=== PATIENT | male | born 1980 | race Caucasian/White ===

== ENCOUNTER 2017-08-23 14:51 | Emergency (ER) | payer SELFPAY ==
[~2017-08-23] VITALS: Ht 172.7 cm; Wt 60.0 kg
[~2017-08-23 14:51] MED LIST: SULF1TAB47 PO; TRAM50 PO; Z.0.NO CURRENT MEDS
[2017-08-23 14:55] VITALS: BP 142/71; PULSE 101; RESP 16; TEMP 98.1; O2SAT 98
[2017-08-23] MEDS ORDERED: SULFAMETHOXAZOLE-TRIMETHOPRIM DS 800-160 MG TAB PO ONE (16:45)
[2017-08-23] MEDS ORDERED: CEPHALEXIN MONOHYDRATE 500 MG CAP PO ONE (16:45)
[2017-08-23] MEDS ORDERED: TETANUS/DIPHTHERIA TOXOID ADULT 0.5 ML VIAL IM ONE (16:45)
[2017-08-23] MEDS ORDERED: LIDOCAINE 1%/EPINEPHrine 1:100,000 SOLN 20 ML VIAL INFIL ONE (16:45)
[2017-08-23] MEDS ORDERED: LIDOCAINE 1%/EPINEPHrine 1:100,000 SOLN 30 ML VIAL ONE (16:50)
[2017-08-23] MEDS ORDERED: CEPH-460 PO (17:19)
[2017-08-23] MEDS ORDERED: BACT800T5 PO (17:19)
[2017-08-23] MEDS ORDERED: DICL75TA PO (17:19)
--- NOTE | 2017-08-23 17:23 | PD ---
HPI Chief Complaint: Skin Problem Time Seen by Provider: 16:19 Travel History International Travel<30 days: No Contact w/Intl Traveler<30days: No Traveled to known affect area: No History of Present Illness HPI 36-year-old male that presents to the ED for evaluation of skin abscess to the left arm. Patient reports that he's had this for about 2 days. Per patient he is an IV drug abuser and used in that arm about 2 days ago. He was concerned today because he got more swelling and he could barely use his arm without severe pain. Used epson saltz with minimal relief. Per patient pain is 8 out of 10. Denies any history of this in the past. No urinary or bowel movement issues. No chest pain or shortness of breath. No fevers chills or sweats. Pain is only to the arm. No drainage. No history of MRSA. Uptodate with tetanus PFSH Past Medical History Medical History: Denies Significant Hx Diminished Hearing: No Tetanus Vaccination: < 5 Years Influenza Vaccination: No Past Surgical History Surgical History: No Previous Surgery Social History Alcohol Use: No Tobacco Use: Yes Substance Use: No Allergies-Medications (Allergen,Severity, Reaction): Coded Allergies: No Known Allergies (Unverified , 10/20/12) Reported Meds & Prescriptions Reported Meds & Active Scripts Active Diclofenac Sodium DR (Diclofenac Sodium) 75 Mg Tabdr 75 Mg PO BID PRN Keflex (Cephalexin) 500 Mg Cap 500 Mg PO Q8H 10 Days Bactrim DS (Sulfamethoxazole-Trimethoprim) 800-160 Mg Tab 1 Tab PO BID 10 Days Review of Systems Except as stated in HPI: all other systems reviewed are Neg Physical Exam Narrative GENERAL: SKIN: Warm and dry. Patient has a skin abscess about 4 cm in diameter on the left antecubital aspect of the arm. Tender to touch. Warm to the touch. Full range of motion of the arm. Good capillary refill. 2+ pulses bilaterally. HEAD: Atraumatic. Normocephalic. EYES: Pupils equal and round. No scleral icterus. No injection or drainage. ENT: No nasal bleeding or discharge. Mucous membranes pink and moist. NECK: Trachea midline. No JVD. CARDIOVASCULAR: Regular rate and rhythm. RESPIRATORY: No accessory muscle use. Clear to auscultation. Breath sounds equal bilaterally. GASTROINTESTINAL: Abdomen soft, non-tender, nondistended. Hepatic and splenic margins not palpable. MUSCULOSKELETAL: Extremities without clubbing, cyanosis, or edema. No obvious deformities. NEUROLOGICAL: Awake and alert. No obvious cranial nerve deficits. Motor grossly within normal limits. Five out of 5 muscle strength in the arms and legs. Normal speech. PSYCHIATRIC: Appropriate mood and affect; insight and judgment normal. Data Data Last Documented VS Vital Signs Date Time Temp Pulse Resp B/P (MAP) Pulse Ox O2 Delivery O2 Flow Rate FiO2 08/23/17 14:55 98.1 101 16 142/71 (94) 98 Orders Orders Wound Culture And Gram Stain (08/23/17 16:39) Wound Care (08/23/17 16:39) Tetanus/Diphtheria Tox Adult (Tetanus/Di (08/23/17 16:45) Lidocai-Epi 1%-1:100,000 Inj (Xylocaine- (08/23/17 16:45) Sulfamet-Trimeth Ds 800-160 Mg (Bactrim (08/23/17 16:45) Cephalexin (Keflex) (08/23/17 16:45) Lidocai-Epi 1%-1:100,000 Inj (Xylocaine- (08/23/17 16:50) Ed Discharge Order (08/23/17 17:18) MDM Medical Decision Making Medical Screen Exam Complete: Yes Emergency Medical Condition: Yes Medical Record Reviewed: Yes Differential Diagnosis Abscesses versus cellulitis versus normal exam Narrative Course 36-year-old male that presents to the ED for evaluation of abscess to the left arm. Patient was properly examined and was found to have signs and symptoms consistent with abscess. After explaining proceeded to the patient and she agreed to it abscess was incised and drained as stated in procedure note. Patient was given prescriptions for Bactrim and Keflex. He was given the first dose of that here. Told to do wound care. Recheck in 48 hours if no improvement. The packing removed in 48 hours. See ED worsening symptoms. Procedures Procedure Narrative After the risks and benefits were discussed the following procedure was performed: INCISION AND DRAINAGE OF ABSCESS: The area was prepped and was sterilely draped. A subcutaneous wheal of 1 % Xylocaine with a total number 5 mL was used to anesthetize the area. The area was properly anesthetized. A number 11 scalpel was used to make a 1 -cm incision across the area of the abscess. Cultures were obtained. The abscess was drained an irrigated with normal saline. Quarter inch iodoform packing was placed in the wound. Sterile dressing applied. Patient advised to have packing removed in two days. Diagnosis Primary Impression: Abscess Patient Instructions: General Instructions Additional Instructions: Take medications as prescribed. Follow-up with PCP. See ED for any worsening symptoms. Apply ice or heat as needed for pain Ice to the area. Change dressings once a day. Get packing removed in 2 days Med/Other Pt SpecificInfo: Prescription(s) given, Wound Care Scripts Diclofenac Sodium DR (Diclofenac Sodium DR) 75 Mg Tabdr 75 MG PO BID Y for PAIN SCALE 1 TO 10, #20 TAB 0 Refills Prov: Abdelrahman Crowell MD 08/23/17 Cephalexin (Keflex) 500 Mg Cap 500 MG PO Q8H for Infection for 10 Days, #30 CAP 0 Refills Prov: Abdelrahman Crowell MD 08/23/17 Sulfamethoxazole-Trimethoprim (Bactrim DS) 800-160 Mg Tab 1 TAB PO BID for Infection for 10 Days, #20 TAB 0 Refills Prov: Abdelrahman Crowell MD 08/23/17 Disposition: 01 DISCHARGE HOME Condition: Stable Jasper Greene Aug 23, 2017 17:23
[2017-08-23 17:47] VITALS: BP 132/83
== END 2017-08-23 17:54 | disposition home or self-care (01) ==
LOC: NEPE 14:51
DX: L02.414 Cutaneous abscess of left upper limb (principal); Z72.0 Tobacco use
CPT/HCPCS: 10061; 86403; 87070; 87205

== ENCOUNTER 2018-06-13 18:43 | Observation (INO) ==
[2018-06-13] MEDS ORDERED: Sod Chloride 0.9% Inj 1,000 ML IV.SIG SCH (19:30)
--- NOTE | 2018-06-13 19:58 | CT ---
EXAM DATE: 06/13/2018 7:54 PM EST AGE/SEX: 37 years / Male INDICATIONS: Trauma, multiple lacerations to face. CLINICAL DATA: This is the patient's initial encounter. Patient reports that signs and symptoms have been present for 1 day and indicates a pain score of 7/10. MEDICAL/SURGICAL HISTORY: None. None. RADIATION DOSE: 45.79 CTDI (mGy) COMPARISON: No prior exams available for comparison. TECHNIQUE: CT of the head without contrast. Using automated exposure control and adjustment of the mA and/or kV according to patient size, radiation dose was kept as low as reasonably achievable to ob tain optimal diagnostic quality images. DICOM format image data is available electronically for revi ew and comparison. FINDINGS: Cerebrum: The ventricles are normal for age. No evidence of midline shift, mass lesion, hemorrhage or acute infarction. No extraaxial fluid collections are seen. Posterior Fossa: The cerebellum and brainstem are intact. The 4th ventricle is midline. The cerebe llopontine angle is unremarkable. Extracranial: The visualized portion of the orbits is intact. Nasal bone fractures are seen. The patient is to have a CT examination of the facial bones to follow. Skull: The calvaria is intact. No evidence of skull fracture. CONCLUSION: 1. No acute intracranial abnormality is seen. . Electronically signed by: Dylan Padilla MD 06/13/2018 7:57 PM EST
--- NOTE | 2018-06-13 20:02 | CT ---
EXAM DATE: 06/13/2018 7:56 PM EST AGE/SEX: 37 years / Male INDICATIONS: Trauma, multiple lacerations to face. CLINICAL DATA: This is the patient's initial encounter. Patient reports that signs and symptoms have been present for 1 day and indicates a pain score of 8/10. MEDICAL/SURGICAL HISTORY: None. None. RADIATION DOSE: 17.13 CTDI (mGy) COMPARISON: No prior exams available for comparison. TECHNIQUE: Contiguous images in the axial and coronal planes were obtained using helical multirow de tector technique. Using automated exposure control and adjustment of the mA and/or kV according to p atient size, radiation dose was kept as low as reasonably achievable to obtain optimal diagnostic duncan lity images. DICOM format image data is available electronically for review and comparison. FINDINGS: Orbits: The orbital and infraorbital osseous structures are intact. The retroconal structures have a normal configuration. No radiopaque foreign bodies are seen. Nasal Bone: Nasal bone fractures are seen being worse on the right. There is minimal lateral displac ement of the anterior right lateral nasal bone fragment. Zygomatic Arches: Symmetric without evidence of fracture. Sinuses: There is mild mucosal thickening at the medial aspects of the maxillary sinuses being worse on the right. There is minimal right anterior ethmoid sinus mucosal disease. There is minimal mucosa l thickening at the anterior medial aspects of the sphenoid sinuses being worse on the right. Nasal Cavity: There appears to be fracturing of the nasal septum. Soft Tissues: No radiopaque foreign bodies seen. No soft-tissue swelling is seen. Intracranial: No intracranial air seen. Cribriform Plate: Grossly intact. CONCLUSION: 1. Nasal bone fractures. 2. Fracture of the bony nasal septum. 3. Mild sinus disease. Electronically signed by: Dylan Padilla MD 06/13/2018 8:00 PM EST
[2018-06-13 20:30] LABS: Baso # (Auto) 0.1 th/mm3 (0.0-0.2); Baso % (Auto) 0.5 % (0.0-2.0); Eos % (Auto) 0.1 % (0.0-4.0); Hematocrit 40.5 % (39.0-51.0); Hemoglobin 13.6 gm/dL (13.0-17.0); Lymph # (Auto) 0.8 th/mm3 (1.0-4.8); Lymph % (Auto) 6.2 % (9.0-44.0); Mean Corpuscular HGB Conc 33.5 % (32.0-36.0); Mean Corpuscular Hemoglobin 29.2 pg (27.0-34.0); Mean Corpuscular Volume 87.3 fL (80.0-100.0); Mean Platelet Volume 7.9 fL (7.0-11.0); Mono # (Auto) 0.9 th/mm3 (0.0-0.9); Mono % (Auto) 6.9 % (0.0-8.0); Neut # (Auto) 11.1 th/mm3 (1.8-7.7); Neut % (Auto) 86.3 % (16.0-70.0); Platelet Count 238 th/mm3 (150-450); Red Blood Count 4.64 mil/mm3 (4.50-5.90); Red Cell Distribution Width 15.3 % (11.6-17.2); White Blood Count 12.8 th/mm3 (4.0-11.0)
[2018-06-13 20:46] LABS: Albumin 3.3 g/dL (3.4-5.0); Anion Gap 6 meq/L (5-15); Aspartate Aminotransferase 62 U/L (15-37); Blood Urea Nitrogen 19 mg/dL (7-18); Calcium 8.7 mg/dL (8.5-10.1); Carbon Dioxide 24.7 meq/L (21.0-32.0); Chloride 102 meq/L (98-107); Glomerular Filtration Rate 71 mL/min (>89); Glucose,Random 138 mg/dL (74-106); Potassium 5.4 meq/L (3.5-5.1); Sodium 133 meq/L (136-145)
[2018-06-13 20:47] LABS: Alanine Aminotransferase 69 U/L (12-78)
[2018-06-13 20:50] LABS: Alkaline Phosphatase 89 U/L (45-117); Total Protein 7.2 g/dL (6.4-8.2)
[2018-06-13] MEDS ORDERED: Acetaminophen 325 MG Tablet PO PRN (22:11)
[2018-06-13] MEDS ORDERED: Bisacodyl 10 MG Supp RECTAL PRN (22:11)
--- NOTE | 2018-06-13 22:12 | ED ---
HPI General Chief Complaint: Altered Mental Status Stated Complaint: ams/evac Time Seen by Provider: 06/13/18 19:15 Source: family and EMS Mode of arrival: EMS Limitations: altered mental status History of Present Illness HPI narrative: 37-year-old male was found found on his grandmother's porch by his sister with altered mental status. As per the sister he has history of IV heroin abuse. However he acted very confused today which is unusual. She also noticed that there were facial injuries and patient did not recall how this happened. Patient was last seen normal by his mother yesterday morning. He was supposed to go to work at his [employer] but did not show up at 4 PM which is unusual. This led to his sister looking for him and eventually finding him on the porch. Patient was brought in by EMS. He did not receive Narcan. Upon arrival he had a GCS of 14. Patient did not remember the date, month or the president of the country. He did not remember how his injury happened. The last thing he remembers was going to his [employer] yesterday and leaving after work in the evening/night. Vital signs were relatively stable. As per the family patient is otherwise healthy. Related Data Home Medications Medication Instructions Recorded Confirmed No Known Home Medications 06/13/18 06/13/18 Allergies Allergy/AdvReac Type Severity Reaction Status Date / Time No Known Allergies Allergy Uncoded 10/20/12 13:23 Review of Systems ROS: all other systems reviewed are negative [facility] Medical History Medical History Patient denies medical problems (Acute) Surgical History Surgical History No history of previous surgery (Acute) Social History Social History Substance History: Past History Second Hand Smoke Exposure: Yes Smoking Status: Current every day smoker Tobacco Type: Cigarettes How Often Do You Have a Drink Containing Alcohol: Never Recent Travel in [facility] within the Last 8 Weeks: No Recent Out of Country Travel within the Last 8 Weeks: No Immunization History Tetanus Immunization: <5 Years Exam Narrative Exam Narrative: GENERAL: Awake, confused, moderate to SKIN: Focused skin assessment warm/dry. HEAD: Atraumatic. Normocephalic. EYES: Pupils equal and round. No scleral icterus. No injection or drainage. ENT: No nasal bleeding or discharge. Mucous membranes pink and moist. Nasal swelling and contusion, contusion of the cheek bones and periorbital ecchymosis bilateral. Poor dentition NECK: Trachea midline. No JVD. CARDIOVASCULAR: Regular rate and rhythm. No murmur appreciated. RESPIRATORY: No accessory muscle use. Clear to auscultation. Breath sounds equal bilaterally. GASTROINTESTINAL: Abdomen soft, non-tender, nondistended. Hepatic and splenic margins not palpable. MUSCULOSKELETAL: No obvious deformities. No clubbing. No cyanosis. No edema. NEUROLOGICAL: GCS of 14. No obvious cranial nerve deficits. Motor grossly within normal limits. Normal speech. PSYCHIATRIC: Appropriate mood and affect; insight and judgment normal. Course Initial Documented Vital Signs Temperature 97.6 F 06/13/18 18:45 Pulse Rate 85 06/13/18 18:45 Respiratory Rate 17 06/13/18 18:45 Blood Pressure 96/64 L 06/13/18 18:45 Pulse Oximetry 92 L 06/13/18 18:45 Last Documented Vital Signs Temperature 99 F 06/14/18 15:20 Pulse Rate 76 06/14/18 15:20 Respiratory Rate 20 06/14/18 15:20 Blood Pressure 121/84 06/14/18 15:20 Pulse Oximetry 96 06/14/18 15:20 Medical Decision Making MDM Narrative Medical decision making narrative: 10:[address] scan of the head was negative. Facial CT showed nasal bone fractures. Patient had mild hyponatremia. He was given 1 L of IV fluid bolus. Upon reassessment recently patient is still a GCS of 14 with no improvement of his memory. The family has been very concerned and would prefer the patient to be admitted and observed. I discussed the case with the hospitalist was accepted the admission. Medical Screen Exam Complete: Yes Emergency Medical Condition: Yes Lab Data Result diagrams: 06/14/18 06:50 06/14/18 06:50 Lab Results 06/13/18 06/13/18 06/13/18 Range/Units 19:33 19:37 19:37 WBC 12.8 H (4.0-11.0) th/mm3 RBC 4.64 (4.50-5.90) mil/mm3 Hgb 13.6 (13.0-17.0) gm/dL Hct 40.5 (39.0-51.0) % MCV 87.3 (80.0-100.0) fL MCH 29.2 (27.0-34.0) pg MCHC 33.5 (32.0-36.0) % RDW 15.3 (11.6-17.2) % Plt Count 238 (150-450) th/mm3 MPV 7.9 (7.0-11.0) fL Neut % (Auto) 86.3 H (16.0-70.0) % Lymph % (Auto) 6.2 L (9.0-44.0) % [place] % (Auto) 6.9 (0.0-8.0) % Eos % (Auto) 0.1 (0.0-4.0) % Baso % (Auto) 0.5 (0.0-2.0) % Neut # (Auto) 11.1 H (1.8-7.7) th/mm3 Lymph # (Auto) 0.8 L (1.0-4.8) th/mm3 [place] # (Auto) 0.9 (0.0-0.9) th/mm3 Eos # (Auto) 0.0 (0.0-0.4) th/mm3 Baso # (Auto) 0.1 (0.0-0.2) th/mm3 WBC Differential . Differential Comment Auto diff final Sodium 133 L (136-145) meq/L Potassium 5.4 H (3.5-5.1) meq/L Chloride 102 (98-107) meq/L Carbon Dioxide 24.7 (21.0-32.0) meq/L Anion Gap 6 (5-15) meq/L BUN 19 H (7-18) mg/dL Creatinine 1.17 (0.60-1.30) mg/dL Estimated GFR 71 L (>89) mL/min POC Glucose 153 H (68-110) mg/dl Random Glucose 138 H (74-106) mg/dL Calcium 8.7 (8.5-10.1) mg/dL Total Bilirubin 0.3 (0.2-1.0) mg/dL AST 62 H (15-37) U/L ALT 69 (12-78) U/L Alkaline Phosphatase 89 (45-117) U/L Total Protein 7.2 (6.4-8.2) g/dL Albumin 3.3 L (3.4-5.0) g/dL Urine Color (Yellw/Straw) Urine Clarity (Clear) Urine pH (5.0-8.5) Ur Specific [place] (1.002-1.035) Urine Protein (Neg-Trace) mg/dL Urine Glucose (UA) (Negative) mg/dL Urine Ketones (Negative) mg/dL Urine Occult Blood (Negative) Urine Nitrate (Negative) Urine Bilirubin (Negative) Urine Urobilinogen (Less than 2) mg/dL Ur Leukocyte Esterase (Negative) Urine RBC (0-3) /hpf Urine WBC (0-5) /hpf Ur Squamous Epith Cells (0-5) /hpf Ur Renal Epithelial Cell (None) /hpf Urine Bacteria (None) /hpf Urine Mucus (Occasional) /lpf Micro UA Comment Ur Microscopic Review Urine Culture Comments Urine Opiates Screen (Neg) Ur Barbiturates Screen (Neg) Ur Amphetamines Screen (Neg) U Benzodiazepines Scrn (Neg) Urine Cocaine Screen (Neg) U Cannabinoids Screen (Neg) 06/13/18 06/13/18 06/14/18 Range/Units 22:08 22:08 06:50 WBC 6.9 (4.0-11.0) th/mm3 RBC 4.08 L (4.50-5.90) mil/mm3 Hgb 12.1 L (13.0-17.0) gm/dL Hct 35.7 L (39.0-51.0) % MCV 87.5 (80.0-100.0) fL MCH 29.5 (27.0-34.0) pg MCHC 33.8 (32.0-36.0) % RDW 15.9 (11.6-17.2) % Plt Count 195 (150-450) th/mm3 MPV 7.7 (7.0-11.0) fL Neut % (Auto) 62.0 (16.0-70.0) % Lymph % (Auto) 23.2 (9.0-44.0) % [place] % (Auto) 12.9 H (0.0-8.0) % Eos % (Auto) 1.3 (0.0-4.0) % Baso % (Auto) 0.6 (0.0-2.0) % Neut # (Auto) 4.3 (1.8-7.7) th/mm3 Lymph # (Auto) 1.6 (1.0-4.8) th/mm3 [place] # (Auto) 0.9 (0.0-0.9) th/mm3 Eos # (Auto) 0.1 (0.0-0.4) th/mm3 Baso # (Auto) 0.0 (0.0-0.2) th/mm3 WBC Differential . Differential Comment Auto diff final Sodium (136-145) meq/L Potassium (3.5-5.1) meq/L Chloride (98-107) meq/L Carbon Dioxide (21.0-32.0) meq/L Anion Gap (5-15) meq/L BUN (7-18) mg/dL Creatinine (0.60-1.30) mg/dL Estimated GFR (>89) mL/min POC Glucose (68-110) mg/dl Random Glucose (74-106) mg/dL Calcium (8.5-10.1) mg/dL Total Bilirubin (0.2-1.0) mg/dL AST (15-37) U/L ALT (12-78) U/L Alkaline Phosphatase (45-117) U/L Total Protein (6.4-8.2) g/dL Albumin (3.4-5.0) g/dL Urine Color Yellow (Yellw/Straw) Urine Clarity Hazy H (Clear) Urine pH 5.0 (5.0-8.5) Ur Specific [place] 1.021 (1.002-1.035) Urine Protein Negative (Neg-Trace) mg/dL Urine Glucose (UA) Negative (Negative) mg/dL Urine Ketones Negative (Negative) mg/dL Urine Occult Blood Negative (Negative) Urine Nitrate Negative (Negative) Urine Bilirubin Negative (Negative) Urine Urobilinogen Less than 2 (Less than 2) mg/dL Ur Leukocyte Esterase Negative (Negative) Urine RBC Less than 1 (0-3) /hpf Urine WBC 2 (0-5) /hpf Ur Squamous Epith Cells <1 (0-5) /hpf Ur Renal Epithelial Cell <1 (None) /hpf Urine Bacteria Rare H (None) /hpf Urine Mucus Moderate H (Occasional) /lpf Micro UA Comment Culture not ind Ur Microscopic Review Not Reportable Urine Culture Comments Culture not ind Urine Opiates Screen Pos H (Neg) Ur Barbiturates Screen Neg (Neg) Ur Amphetamines Screen Pos H (Neg) U Benzodiazepines Scrn Neg (Neg) Urine Cocaine Screen Neg (Neg) U Cannabinoids Screen Pos H (Neg) 06/14/18 Range/Units 06:50 WBC (4.0-11.0) th/mm3 RBC (4.50-5.90) mil/mm3 Hgb (13.0-17.0) gm/dL Hct (39.0-51.0) % MCV (80.0-100.0) fL MCH (27.0-34.0) pg MCHC (32.0-36.0) % RDW (11.6-17.2) % Plt Count (150-450) th/mm3 MPV (7.0-11.0) fL Neut % (Auto) (16.0-70.0) % Lymph % (Auto) (9.0-44.0) % [place] % (Auto) (0.0-8.0) % Eos % (Auto) (0.0-4.0) % Baso % (Auto) (0.0-2.0) % Neut # (Auto) (1.8-7.7) th/mm3 Lymph # (Auto) (1.0-4.8) th/mm3 [place] # (Auto) (0.0-0.9) th/mm3 Eos # (Auto) (0.0-0.4) th/mm3 Baso # (Auto) (0.0-0.2) th/mm3 WBC Differential Differential Comment Sodium 139 (136-145) meq/L Potassium 3.8 D (3.5-5.1) meq/L Chloride 106 (98-107) meq/L Carbon Dioxide 25.9 (21.0-32.0) meq/L Anion Gap 7 (5-15) meq/L BUN 13 (7-18) mg/dL Creatinine 0.67 (0.60-1.30) mg/dL Estimated GFR Greater than 89 (>89) mL/min POC Glucose (68-110) mg/dl Random Glucose 88 (74-106) mg/dL Calcium 7.6 L D (8.5-10.1) mg/dL Total Bilirubin 0.4 (0.2-1.0) mg/dL AST 40 H (15-37) U/L ALT 55 (12-78) U/L Alkaline Phosphatase 74 (45-117) U/L Total Protein 6.0 L D (6.4-8.2) g/dL Albumin 2.8 L (3.4-5.0) g/dL Urine Color (Yellw/Straw) Urine Clarity (Clear) Urine pH (5.0-8.5) Ur Specific [place] (1.002-1.035) Urine Protein (Neg-Trace) mg/dL Urine Glucose (UA) (Negative) mg/dL Urine Ketones (Negative) mg/dL Urine Occult Blood (Negative) Urine Nitrate (Negative) Urine Bilirubin (Negative) Urine Urobilinogen (Less than 2) mg/dL Ur Leukocyte Esterase (Negative) Urine RBC (0-3) /hpf Urine WBC (0-5) /hpf Ur Squamous Epith Cells (0-5) /hpf Ur Renal Epithelial Cell (None) /hpf Urine Bacteria (None) /hpf Urine Mucus (Occasional) /lpf Micro UA Comment Ur Microscopic Review Urine Culture Comments Urine Opiates Screen (Neg) Ur Barbiturates Screen (Neg) Ur Amphetamines Screen (Neg) U Benzodiazepines Scrn (Neg) Urine Cocaine Screen (Neg) U Cannabinoids Screen (Neg) Imaging Data Radiologist's impression: Face CT 06/13/18 19:27 CONCLUSION: 1. Nasal bone fractures. 2. Fracture of the bony nasal septum. 3. Mild sinus disease. Head CT 06/13/18 19:27 CONCLUSION: 1. No acute intracranial abnormality is seen. . Head CT 06/14/18 06:00 CONCLUSION: 1. Stable evaluation without evidence of acute intercranial process. 2. Fractured nasal bone. . ECG Data Attestation: I personally reviewed and interpreted this ECG as follows: Interpretation: Twelve-lead EKG was reviewed by me. Normal sinus rhythm, normal axis, nonspecific ST-T wave changes. Heart rate of 71 bpm Discharge Plan Discharge Disposition Patient Disposition: ED Admit(ED Internal Use Only) Discharge Condition Condition: Stable Discharge Order Discharge Orders: Discharge Order (Routine); Ordered 06/14/18 Ordered By: Alyx Chapa ED Use Only Admit Order (Routine); Ordered 06/13/18 Ordered By: Jammie Montes Discharge Details Anticipated Discharge Date: 06/14/18 Physicians Team ED Provider: Jammie Montes Primary Care Provider: Primary Care Mary Castillo Attending Provider: Mark Bradshaw Status ED Status: Left Department Discharge Information Discharge Date/Time: 06/13/18 23:59
--- NOTE | 2018-06-13 22:13 | P.HPIM ---
History of Present Illness Primary Care Physician: No Primary Care Physician History of Present Illness: This is a 37-year-old male with a PMH of IVDU who was brought to the ER by EMS for AMS. Pt was apparently found sitting on his porch w/ AMS after sister went looking for him when he didn't show up for work. Noted to have obvious facial injuries. Pt w/ no recollection of events. Pt now awake, alert, but w/ episodes of confusion, oriented to person/place only. Family notes pt w/ known h/o drug use, but no similar symptoms like this in the past. On arrival, BP 96/ 64, HR 85, O2 sat 92% on RA, Afebrile. WBC 12.8. Chemistry unremarkable except for K+ 5.4. BUN 19, GFR 71. UA negative for UTI. Urine Drug Screen positive for Opiates, Amphetamines and Marijuana. CT Head with no acute findings. CT Face with nasal bone fractures, fracture of bony nasal septum. While in ER pt remains lethargic but answering questions, +confusion. - Diagnosis (1) Encephalopathy (2) IVDU (intravenous drug user) (3) Leukocytosis (4) Facial fracture Review of Systems PAST FAMILY HISTORY: Reviewed. No h/o DM or CAD All other systems reviewed negative except as stated in HPI PMFSH - History History Provided By: Patient - Medical History Medical History: Medical History (Last Reviewed 06/13/18 @ 22:10 by Jammie Montes MD) Patient denies medical problems - Surgical History Surgical History: Surgical History (Last Reviewed 06/13/18 @ 22:10 by Jammie Montes MD) No history of previous surgery - Tobacco History Second Hand Smoke Exposure: Yes Tobacco Use In Past 30 Days: Yes Smoking Status: Current every day smoker Tobacco Type: Cigarettes - Alcohol History How Often Do You Have a Drink Containing Alcohol: Never - Substance Use History Substance History: Past History - Travel History Recent Travel in the [place] Within the Last 8 Weeks: No Recent Travel Out of the Country Within the Last 8 Weeks: No - Immunization History Tetanus Immunization: <5 Years Medications and Allergies Active Medications: Active Medications Acetaminophen (Tylenol) 650 mg PO Q4H PRN PRN Reason: Temp > 100.4 Al Hydroxide/Mg Hydroxide (Milk Of Magnesia Liq) 30 ml PO Q12H PRN PRN Reason: Mild Constipation Bisacodyl (Dulcolax Supp) 10 mg RECTAL DAILY PRN PRN Reason: SEVERE CONSITIPATION Sodium Chloride (Ns Inj) 1,000 mls @ 100 mls/hr IV.CONT .Q10H MIRIAM Lactulose (Lactulose Liq) 30 ml PO DAILY PRN PRN Reason: SEVERE CONSITIPATION Allergies Allergy/AdvReac Type Severity Reaction Status Date / Time No Known Allergies Allergy Uncoded 10/20/12 13:23 Home Medications Medication Instructions Recorded Confirmed Type No Known Home Medications 06/13/18 06/13/18 History Exam Vital signs: Vital Signs 06/13/18 18:45 06/13/18 19:48 06/13/18 20:30 Temperature 97.6 F Pulse Rate 85 110 H 75 Respiratory Rate 17 18 Blood Pressure 96/64 L 94/61 L Pulse Oximetry 92 L Intake & Output 06/13/18 06/13/18 06/14/18 06:59 18:59 06:59 Intake Total 1000 / 1000 Balance 1000 / 1000 Weight 58.967 kg Intake: IV 1000 / 1000 NS Inj 1,000 ML @ 1000 mls/hr 1000 / 1000 IV.SIG BOLUS MIIRAM Rx#:[id number] Narrative: PE: GENERAL: Young white male in no acute distress, lethargic/sleeping, answering questions w/ eyes closed. SKIN: Focused skin assessment warm and dry. HEENT: PERRLA, EOMI. No scleral icterus or conjunctival pallor. No lid lag or facial droop. +facial bruising, nasal swelling, periorbital ecchymosis. CARDIOVASCULAR: Regular rate and rhythm. No obvious murmurs to auscultation. No chest tenderness to palpation. RESPIRATORY: No obvious rhonchi or wheezing. Clear to auscultation. Breath sounds equal bilaterally. GASTROINTESTINAL: Abdomen soft, non-tender, nondistended. BS normal. MUSCULOSKELETAL: Extremities without clubbing, cyanosis, or edema. No obvious deformities. NEUROLOGICAL: Awake, alert and oriented x4. No focal neurologic deficits. Moving both upper and lower extremities spontaneously. PSYCHIATRIC: Appropriate mood and affect. Insight and judgment normal. Results - Labs CBC & Chem 7: 06/13/18 19:37 06/13/18 19:37 Labs: Short CBC 06/13/18 Range/Units 19:37 WBC 12.8 H (4.0-11.0) th/mm3 Hgb 13.6 (13.0-17.0) gm/dL Hct 40.5 (39.0-51.0) % Plt Count 238 (150-450) th/mm3 [facility] 06/13/18 19:37 Sodium 133 L Potassium 5.4 H Chloride 102 Carbon Dioxide 24.7 BUN 19 H Creatinine 1.17 Calcium 8.7 Liver Function 06/13/18 Range/Units 19:37 Total Bilirubin 0.3 (0.2-1.0) mg/dL AST 62 H (15-37) U/L ALT 69 (12-78) U/L Alkaline Phosphatase 89 (45-117) U/L Albumin 3.3 L (3.4-5.0) g/dL - Imaging Impressions Face CT 06/13/18 19:27 CONCLUSION: 1. Nasal bone fractures. 2. Fracture of the bony nasal septum. 3. Mild sinus disease. Head CT 06/13/18 19:27 CONCLUSION: 1. No acute intracranial abnormality is seen. . Caprini VTE Risk Assessment Caprini VTE Risk Assessment: No/Low Risk (score <= 1) Caprini Risk Assessment Model: Point Value = 1 Point Value = 2 Point Value = 3 Point Value = 5 Age 41-60 Minor surgery BMI > 25 kg/m2 Swollen legs Varicose veins or History of unexplained or recurrent spontaneous Oral contraceptives or hormone replacement Sepsis (< 1 month) Serious lung disease, including pneumonia (< 1 month) Abnormal pulmonary function Acute myocardial infarction Congestive heart failure (< 1 month) History of inflammatory bowel disease Medical patient at bed rest Age 61-74 Arthroscopic surgery Major open surgery (> 45 min) Laparoscopic surgery (> 45 min) Malignancy Confined to bed (> 72 hours) Immobilizing plaster cast Central venous access Age >= 75 History of VTE Family history of VTE Factor V Leiden Prothrombin [id number] Lupus anticoagulant Anticardiolipin antibodies Elevated serum homocysteine Heparin-induced thrombocytopenia Other congenital or acquired thrombophilia Stroke (< 1 month) Elective arthroplasty Hip, pelvis, or leg fracture Acute spinal cord injury (< 1 month) Prophylaxis Regimen: Total Risk Factor Score Risk Level Prophylaxis Regimen 0-1 Low Early ambulation 2 Moderate Order ONE of the following: *Sequential Compression Device (SCD) *Heparin 5000 units SQ BID 3-4 Higher Order ONE of the following medications: *Heparin 5000 units SQ TID *Enoxaparin/Lovenox 40 mg SQ daily (WT < 150 kg, CrCl > 30 mL/min) *Enoxaparin/Lovenox 30 mg SQ daily (WT < 150 kg, CrCl > 10-29 mL/min) *Enoxaparin/Lovenox 30 mg SQ BID (WT < 150 kg, CrCl > 30 mL/min) AND/OR *Sequential Compression Device (SCD) 5 or more Highest Order ONE of the following medications: *Heparin 5000 units SQ TID (Preferred with Epidurals) *Enoxaparin/Lovenox 40 mg SQ daily (WT < 150 kg, CrCl > 30 mL/min) *Enoxaparin/Lovenox 30 mg SQ daily (WT < 150 kg, CrCl > 10-29 mL/min) *Enoxaparin/Lovenox 30 mg SQ BID (WT < 150 kg, CrCl > 30 mL/min) AND *Sequential Compression Device (SCD) Assessment and Plan - Assessment (1) Encephalopathy Code(s): G93.40 - Encephalopathy, unspecified Status: Acute (2) IVDU (intravenous drug user) Code(s): F19.90 - Other psychoactive substance use, unspecified, uncomplicated Status: Acute (3) Leukocytosis Code(s): D72.829 - Elevated white blood cell count, unspecified Status: Acute (4) Facial fracture Code(s): S02.92XA - Unspecified fracture of facial bones, initial encounter for closed fracture Status: Acute - Plan A/P: 1. Encephalopathy: likely multifactorial-acute drug ingestion compounded by fall and post-concussive state or possible seizure activity w/ prolonged post- ictal state. +confusion on exam, family notes not baseline. CT Head w/ no acute findings. Admit for Observation, Neuro checks, repeat CT Head in am to eval for progression, check EEG to eval for possible seizure activity. 2. Facial Fx: CT Face w/ nasal bone fractures, fracture of bony nasal septum, +swelling on exam, no respiratory distress or airway compromise. Outpatient referral to [facility] 3. IVDU: +Heroin, UDS positive for Opiates, Amphetamines and Marijuana. 4. Leukocytosis: WBC 12.8, likely reactive, afebrile, U/a negative for UTI, no signs/symptoms of infection, repeat labs in am. 5. DVT Prophylaxis: SCD/Teds 6. Social work for d/c planning as needed. 7. Case discussed w/ ER physician at length, labs/records/imaging reviewed by me
[2018-06-13 23:01] LABS: Bacteria,Urine Rare /hpf; Bilirubin,Urine Negative (Negative); Clarity,Urine Hazy (Clear); Color,Urine Yellow (Yellw/Straw); Glucose,Urine (UA) Negative (Negative); Leukocyte Esterase,Urine Negative (Negative); Mucus,Urine Moderate /lpf (Occasional); Nitrite,Urine Negative (Negative); Renal Epithelial Cells,Urine <1 /hpf; Specific Gravity,Urine 1.021 (1.002-1.035); Squamous Epithelial Cell,Urine <1 /hpf (0-5)
[2018-06-13 23:03] LABS: Amphetamine Screen,Urine Pos (Neg); Barbiturate Screen,Urine Neg (Neg); Cannabinoid Screen,Urine Pos (Neg); Cocaine Screen,Urine Neg (Neg)
[2018-06-13 23:04] LABS: Opiate Screen,Urine Pos (Neg)
[2018-06-14] MEDS: Sod Chloride 0.9% Inj 1,000 ML IV.CONT SCH ×2 (00:28→09:18)
[2018-06-14 08:29] LABS: Alanine Aminotransferase 55 U/L (12-78); Albumin 2.8 g/dL (3.4-5.0); Anion Gap 7 meq/L (5-15); Aspartate Aminotransferase 40 U/L (15-37); Blood Urea Nitrogen 13 mg/dL (7-18); Calcium 7.6 mg/dL (8.5-10.1); Carbon Dioxide 25.9 meq/L (21.0-32.0); Chloride 106 meq/L (98-107); Glomerular Filtration Rate Greater Than 89 mL/min (>89); Glucose,Random 88 mg/dL (74-106); Potassium 3.8 meq/L (3.5-5.1); Sodium 139 meq/L (136-145)
[2018-06-14 08:32] LABS: Alkaline Phosphatase 74 U/L (45-117)
[2018-06-14 08:40] LABS: Baso % (Auto) 0.6 % (0.0-2.0); Eos # (Auto) 0.1 th/mm3 (0.0-0.4); Eos % (Auto) 1.3 % (0.0-4.0); Hematocrit 35.7 % (39.0-51.0); Hemoglobin 12.1 gm/dL (13.0-17.0); Lymph # (Auto) 1.6 th/mm3 (1.0-4.8); Lymph % (Auto) 23.2 % (9.0-44.0); Mean Corpuscular HGB Conc 33.8 % (32.0-36.0); Mean Corpuscular Hemoglobin 29.5 pg (27.0-34.0); Mean Corpuscular Volume 87.5 fL (80.0-100.0); Mean Platelet Volume 7.7 fL (7.0-11.0); Mono # (Auto) 0.9 th/mm3 (0.0-0.9); Mono % (Auto) 12.9 % (0.0-8.0); Neut # (Auto) 4.3 th/mm3 (1.8-7.7); Platelet Count 195 th/mm3 (150-450); Red Blood Count 4.08 mil/mm3 (4.50-5.90); Red Cell Distribution Width 15.9 % (11.6-17.2); White Blood Count 6.9 th/mm3 (4.0-11.0)
[2018-06-14] MEDS ORDERED: Senna/Docusate Sodium 8.6/50 MG Tablet PO SCH (09:00)
--- NOTE | 2018-06-14 09:10 | CT ---
EXAM DATE: 06/14/2018 9:02 AM EST AGE/SEX: 37 years / Male INDICATIONS: Trauma, multiple facial lacerations. CLINICAL DATA: This is the patient's initial encounter. Patient reports that signs and symptoms have been present for 2 days and indicates a pain score of 5/10. MEDICAL/SURGICAL HISTORY: None. None. RADIATION DOSE: 56.35 CTDI (mGy) [place] [facility] [place]13[place]. . TECHNIQUE: CT of the head without contrast. Using automated exposure control and adjustment of the mA and/or kV according to patient size, radiation dose was kept as low as reasonably achievable to ob tain optimal diagnostic quality images. DICOM format image data is available electronically for revi ew and comparison. FINDINGS: Cerebrum: The ventricles are normal for age. No evidence of midline shift, mass lesion, hemorrhage or acute infarction. No extraaxial fluid collections are seen. Posterior Fossa: The cerebellum and brainstem are intact. The 4th ventricle is midline. The cerebe llopontine angle is unremarkable. Extracranial: The visualized portion of the orbits is intact. Nasal bone fractures again noted. Skull: The calvaria is intact. No evidence of skull fracture. CONCLUSION: 1. Stable evaluation without evidence of acute intercranial process. 2. Fractured nasal bone. . Electronically signed by: Ranjeet Bazzi MD 06/14/2018 9:09 AM EST
--- NOTE | 2018-06-14 09:50 | ECG ---
Date Performed: 06/13/2018 Time Performed: 18:54:42 PTAGE: 37 years EKG: Sinus rhythm NORMAL ECG NO PREVIOUS TRACING DOCTOR: Missael Chester Interpretating Date/Time 06/14/2018 09:50:09
--- NOTE | 2018-06-14 09:54 | ECG ---
Date Performed: 06/13/2018 Time Performed: 21:41:50 PTAGE: 37 years EKG: Sinus rhythm EARLY REPOLARIZATION BORDERLINE ECG Since the PREVIOUS TRACING , no significant change noted PREVIOUS TRACIN06/13/2018 18.54 DOCTOR: Missael Chester Interpretating Date/Time 06/14/2018 09:53:51
--- NOTE | 2018-06-14 14:26 | MG ---
cc: Adria Barba MD, PhD TEST NUMBER: [id number] TECHNIQUE: A 17-channel EEG. DESCRIPTION: The background rhythm reveals symmetrical alpha activity 8-10 Hz, amplitude is 29 microvolts. There is the expected anterior decrement to the response. No lateralizing features are identified. There is some slowing in the theta range, but this is probably related to drowsiness. No epileptiform discharges seen. No lateralizing features are seen. Photic stimulation was done with a fairly well-developed driving response. INTERPRETATION: Normal electroencephalogram. Adria Barba MD, PhD PRAVEENA/tram , 02:02 PM , 02:05 PM
--- NOTE | 2018-06-14 14:49 | P.PNIM ---
Subjective Interval history: Patient is seen lying quietly in bed. He is sleeping but wakes easily. Denies any headache or dizziness. No vision changes. No nausea vomiting or diarrhea. No chest pain or shortness of breath. He denies any history of seizures. Pain is adequately controlled. Physical Exam Vital signs: Last Vital Signs Temp 98.1 F 06/14/18 11:00 Pulse 20 L 06/14/18 11:00 Resp 20 06/14/18 11:00 BP 123/79 06/14/18 11:00 Pulse Ox 95 06/14/18 11:00 Intake & Output 06/12/18 06/13/18 06/14/18 06/15/18 06:59 06:59 06:59 06:59 Intake Total 1300 / 1300 1959 Balance 1300 / 1299 Weight 58.967 kg Narrative: GENERAL: Well-developed, well-nourished male in no acute distress. SKIN: Focused skin assessment warm and dry. HEENT: PERRLA, EOMI. No scleral icterus or conjunctival pallor. No lid lag or facial droop. +facial bruising, nasal swelling, periorbital ecchymosis. CARDIOVASCULAR: Regular rate and rhythm. No obvious murmurs to auscultation. No chest tenderness to palpation. RESPIRATORY: No obvious rhonchi or wheezing. Clear to auscultation. Breath sounds equal bilaterally. GASTROINTESTINAL: Abdomen soft, non-tender, nondistended. BS normal. MUSCULOSKELETAL: Extremities without clubbing, cyanosis, or edema. No obvious deformities. NEUROLOGICAL: Awake, alert and oriented x4. No focal neurologic deficits. Moving both upper and lower extremities spontaneously. PSYCHIATRIC: Appropriate mood and affect. Insight and judgment normal. Results Labs CBC & Chem 7: 06/14/18 06:50 06/14/18 06:50 Imaging Imaging: Impressions Face CT 06/13/18 19:27 CONCLUSION: 1. Nasal bone fractures. 2. Fracture of the bony nasal septum. 3. Mild sinus disease. Head CT 06/13/18 19:27 CONCLUSION: 1. No acute intracranial abnormality is seen. . Head CT 06/14/18 06:00 CONCLUSION: 1. Stable evaluation without evidence of acute intercranial process. 2. Fractured nasal bone. . Assessment and Plan (1) Encephalopathy: Code(s): G93.40 - Encephalopathy, unspecified Status: Acute (2) IVDU (intravenous drug user): Code(s): F19.90 - Other psychoactive substance use, unspecified, uncomplicated Status: Acute (3) Leukocytosis: Code(s): D72.829 - Elevated white blood cell count, unspecified Status: Acute (4) Facial fracture: Code(s): S02.92XA - Unspecified fracture of facial bones, initial encounter for closed fracture Status: Acute Plan Patient is a 37-year-old male with past medical history of IV drug use who was brought into the ER by EMS for altered mental status. Facial injuries were noted at the time of admit. Patient denies knowing what happens to him. Encephalopathy: likely multifactorial-acute drug ingestion compounded by fall and post-concussive state or possible seizure activity w/ prolonged post-ictal state. +confusion on exam, family notes not baseline. CT Head w/ no acute findings. -Neuro checks, repeat CT Head in am to eval for progression -neck, EEG negative for seizure activity. Facial Fx: -Outpatient referral to [facility] History of IVDU: -UDS positive for Opiates, Amphetamines and Marijuana. -Cessation counseled but unlikely Leukocytosis: WBC 12.8, -likely reactive, afebrile, U/a negative for UTI, no signs/symptoms of infection -Now WNL DVT Prophylaxis: SCD/Teds Discharge planning: Home today Progress Note: Quality VTE Deep Vein Thrombosis/Pulmonary Embolism Present on Admission: No _ (1) Leukocytosis Qualifiers: Leukocytosis type: (2) Facial fracture Qualifiers: Encounter type: Facial bone/location: Fracture type: Mandible location: [place] fracture type: Laterality: Fracture healing:
--- NOTE | 2018-06-14 14:54 | P.DS ---
DS: Providers Date of admission: 06/13/18 22:06 Primary care physician: No Primary Care Physician Brief History from admission: This is a 37-year-old male with a PMH of IVDU who was brought to the ER by EMS for AMS. Pt was apparently found sitting on his porch w/ AMS after sister went looking for him when he didn't show up for work. Noted to have obvious facial injuries. Pt w/ no recollection of events. Pt now awake, alert, but w/ episodes of confusion, oriented to person/place only. Family notes pt w/ known h/o drug use, but no similar symptoms like this in the past. On arrival, BP 96/ 64, HR 85, O2 sat 92% on RA, Afebrile. WBC 12.8. Chemistry unremarkable except for K+ 5.4. BUN 19, GFR 71. UA negative for UTI. Urine Drug Screen positive for Opiates, Amphetamines and Marijuana. CT Head with no acute findings. CT Face with nasal bone fractures, fracture of bony nasal septum. While in ER pt remains lethargic but answering questions, +confusion. DS: Diagnosis Discharge Diagnosis (1) Encephalopathy: Status: Acute (2) IVDU (intravenous drug user): Status: Acute (3) Leukocytosis: Status: Acute (4) Facial fracture: Status: Acute DS: Summary Patient is a 37-year-old male with past medical history of IV drug use who was brought into the ER by EMS for altered mental status. Facial injuries were noted at the time of admit. Patient denies knowing what happens to him. Encephalopathy: likely multifactorial-acute drug ingestion compounded by fall and post-concussive state or possible seizure activity w/ prolonged post-ictal state. Initial CT Head w/ no acute findings. -Neuro checks -no seizure activity noted by nursing, repeat CT Head in am to eval for progression -negative, EEG negative for seizure activity. -Encephalopathy resolved prior to discharge Facial Fx: -Conservative management with outpatient referral to [facility] History of IVDU: -UDS positive for Opiates, Amphetamines and Marijuana. -Cessation counseled but unlikely Leukocytosis: WBC 12.8, -likely reactive, afebrile, U/a negative for UTI, no signs/symptoms of infection -Now WNL Time Spent with Patient Total time spent providing and/or coordinating discharge services: <30 min Quality: VTE Deep Vein Thrombosis/Pulmonary Embolism Present on Admission: No Exam Narrative Exam Narrative: GENERAL: Well-developed, well-nourished male in no acute distress. SKIN: Focused skin assessment warm and dry. HEENT: PERRLA, EOMI. No scleral icterus or conjunctival pallor. No lid lag or facial droop. +facial bruising, nasal swelling, periorbital ecchymosis. CARDIOVASCULAR: Regular rate and rhythm. No obvious murmurs to auscultation. No chest tenderness to palpation. RESPIRATORY: No obvious rhonchi or wheezing. Clear to auscultation. Breath sounds equal bilaterally. GASTROINTESTINAL: Abdomen soft, non-tender, nondistended. BS normal. MUSCULOSKELETAL: Extremities without clubbing, cyanosis, or edema. No obvious deformities. NEUROLOGICAL: Awake, alert and oriented x4. No focal neurologic deficits. Moving both upper and lower extremities spontaneously. PSYCHIATRIC: Appropriate mood and affect. Insight and judgment normal. Results Labs on day of discharge: Labs from last 24 hours 06/14/18 06/14/18 06/13/18 06:50 06:50 22:08 WBC 6.9 RBC 4.08 L Hgb 12.1 L Hct 35.7 L MCV 87.5 MCH 29.5 MCHC 33.8 RDW 15.9 Plt Count 195 MPV 7.7 Neut % (Auto) 62.0 Lymph % (Auto) 23.2 [place] % (Auto) 12.9 H Eos % (Auto) 1.3 Baso % (Auto) 0.6 Neut # (Auto) 4.3 Lymph # (Auto) 1.6 [place] # (Auto) 0.9 Eos # (Auto) 0.1 Baso # (Auto) 0.0 WBC Differential . Differential Comment Auto diff final Sodium 139 Potassium 3.8 D Chloride 106 Carbon Dioxide 25.9 Anion Gap 7 BUN 13 Creatinine 0.67 Estimated GFR Greater than 89 POC Glucose Random Glucose 88 Calcium 7.6 L D Total Bilirubin 0.4 AST 40 H ALT 55 Alkaline Phosphatase 74 Total Protein 6.0 L D Albumin 2.8 L Urine Color Yellow Urine Clarity Hazy H Urine pH 5.0 Ur Specific [place] 1.021 Urine Protein Negative Urine Glucose (UA) Negative Urine Ketones Negative Urine Occult Blood Negative Urine Nitrate Negative Urine Bilirubin Negative Urine Urobilinogen Less than 2 Ur Leukocyte Esterase Negative Urine RBC Less than 1 Urine WBC 2 Ur Squamous Epith Cells <1 Ur Renal Epithelial Cell <1 Urine Bacteria Rare H Urine Mucus Moderate H Micro UA Comment Culture not ind Ur Microscopic Review Not Reportable Urine Culture Comments Culture not ind Urine Opiates Screen Ur Barbiturates Screen Ur Amphetamines Screen U Benzodiazepines Scrn Urine Cocaine Screen U Cannabinoids Screen 06/13/18 06/13/18 06/13/18 22:08 19:37 19:37 WBC 12.8 H RBC 4.64 Hgb 13.6 Hct 40.5 MCV 87.3 MCH 29.2 MCHC 33.5 RDW 15.3 Plt Count 238 MPV 7.9 Neut % (Auto) 86.3 H Lymph % (Auto) 6.2 L [place] % (Auto) 6.9 Eos % (Auto) 0.1 Baso % (Auto) 0.5 Neut # (Auto) 11.1 H Lymph # (Auto) 0.8 L [place] # (Auto) 0.9 Eos # (Auto) 0.0 Baso # (Auto) 0.1 WBC Differential . Differential Comment Auto diff final Sodium 133 L Potassium 5.4 H Chloride 102 Carbon Dioxide 24.7 Anion Gap 6 BUN 19 H Creatinine 1.17 Estimated GFR 71 L POC Glucose Random Glucose 138 H Calcium 8.7 Total Bilirubin 0.3 AST 62 H ALT 69 Alkaline Phosphatase 89 Total Protein 7.2 Albumin 3.3 L Urine Color Urine Clarity Urine pH Ur Specific [place] Urine Protein Urine Glucose (UA) Urine Ketones Urine Occult Blood Urine Nitrate Urine Bilirubin Urine Urobilinogen Ur Leukocyte Esterase Urine RBC Urine WBC Ur Squamous Epith Cells Ur Renal Epithelial Cell Urine Bacteria Urine Mucus Micro UA Comment Ur Microscopic Review Urine Culture Comments Urine Opiates Screen Pos H Ur Barbiturates Screen Neg Ur Amphetamines Screen Pos H U Benzodiazepines Scrn Neg Urine Cocaine Screen Neg U Cannabinoids Screen Pos H 06/13/18 19:33 WBC RBC Hgb Hct MCV MCH MCHC RDW Plt Count MPV Neut % (Auto) Lymph % (Auto) [place] % (Auto) Eos % (Auto) Baso % (Auto) Neut # (Auto) Lymph # (Auto) [place] # (Auto) Eos # (Auto) Baso # (Auto) WBC Differential Differential Comment Sodium Potassium Chloride Carbon Dioxide Anion Gap BUN Creatinine Estimated GFR POC Glucose 153 H Random Glucose Calcium Total Bilirubin AST ALT Alkaline Phosphatase Total Protein Albumin Urine Color Urine Clarity Urine pH Ur Specific [place] Urine Protein Urine Glucose (UA) Urine Ketones Urine Occult Blood Urine Nitrate Urine Bilirubin Urine Urobilinogen Ur Leukocyte Esterase Urine RBC Urine WBC Ur Squamous Epith Cells Ur Renal Epithelial Cell Urine Bacteria Urine Mucus Micro UA Comment Ur Microscopic Review Urine Culture Comments Urine Opiates Screen Ur Barbiturates Screen Ur Amphetamines Screen U Benzodiazepines Scrn Urine Cocaine Screen U Cannabinoids Screen Impressions ITS Impressions Face CT 06/13/18 19:27 CONCLUSION: 1. Nasal bone fractures. 2. Fracture of the bony nasal septum. 3. Mild sinus disease. Head CT 06/14/18 06:00 CONCLUSION: 1. Stable evaluation without evidence of acute intercranial process. 2. Fractured nasal bone. . Discharge Plan Discharge Disposition Patient Disposition: Discharge Home Discharge Condition Condition: Stable Discharge Order Discharge Orders: Discharge Order (Routine); Ordered 06/14/18 Ordered By: Alyx Chapa ED Use Only Admit Order (Routine); Ordered 06/13/18 Ordered By: Jammie Montes Discharge Details Anticipated Discharge Date: 06/14/18 Physicians Team ED Provider: Jammie Montes Primary Care Provider: Primary Care Mary Castillo Attending Provider: Mark Bradshaw Rxs /Orders / Referrals /Forms Prescriptions: No Action No Known Home Medications RF: 0 Referrals: [facility] [Outside] - See Instructions Abraham Marchman [facility] [Outside] - See Instructions Oral Maxillofacial Surgeon [Outside] - See Instructions Discharge Instructions Patient Printed Instructions: Facial Fracture (GEN), Polysubstance Abuse (ED) Status ED Status: Left Department
== END 2018-06-14 16:55 | disposition home or self-care (01) ==
LOC: NEPC 18:43 → NEDA 18:43 → NEPHCDU 23:47
PROVIDERS: ADMIT Hospitalist; ATTEND Hospitalist